=== PATIENT | female | born 1980 | race Caucasian/White ===

== ENCOUNTER 2019-06-28 16:05 | Emergency (ER) | payer MEDICAID ==
[~2019-06-28] VITALS: Ht 160 cm; Wt 72.1 kg
[2019-06-28 16:11] VITALS: Ht 160 cm; Wt 72.1 kg
[2019-06-28 21:12] VITALS: BP 114/66
== END 2019-06-28 21:12 | disposition home or self-care (01) ==
LOC: ED 16:05
DX: M65.4 Radial styloid tenosynovitis [de Quervain] (principal); Z98.890 Other specified postprocedural states
CPT/HCPCS: Q0092